=== PATIENT | male | born 1980 | race Caucasian/White ===

== ENCOUNTER 2017-06-28 11:47 | Emergency (ER) | payer SELFPAY ==
[~2017-06-28] VITALS: Ht 172.7 cm; Wt 81.6 kg
[2017-06-28 11:54] VITALS: BP 142/91
[2017-06-28] MEDS ORDERED: NACL 0.9% 1,000 ML IV ONE ×2 (12:35→13:45)
--- NOTE | 2017-06-28 12:40 | NUR ---
Note chanaone in EDM - 06/28/17 at 1244 by PEGGY PATIENT BIB EMS WITH C/O ALOC FROM [facility] D/T SMOKING "HONEY OIL/THC" AROUND 0900 BECAME ALTERED/COMBATIVE, NON VERBAL;if asked questions pt just nod his head; SKIN IS PINK/WARM/DRY;POSITIONED FOR COMFORT; HOB ELEVATED; BEDRAILS UP X2; BED DOWN. ER MD MADE AWARE OF PT STATUS.
--- NOTE | 2017-06-28 12:40 | NUR ---
Pieter mejía in ED - 06/28/[address] [place] [address] kim at bedside evaluating pt.pt respond to Dr Kim's questions;asked pt if he is back to normal or confuse?Pt states "confuse";will continue to monitor pt.
--- NOTE | 2017-06-28 12:40 | NUR ---
PT IN A FOUR POINT RESTRAINT;[facility] PT IS COMBATIVE;
--- NOTE | 2017-06-28 12:41 | NUR ---
DR Kim at bedside evaluating pt.pt respond to Dr Kim's questions;asked pt if he is back to normal or confuse?Pt states "confuse";will continue to monitor pt.
[2017-06-28 12:59] LABS: BASOPHILS # (AUTO) 0.2 K/uL (0.00-0.22); BASOPHILS % (AUTO) 2.6 % (0.0-2.0); EOSINOPHILS # (AUTO) 0.1 K/uL (0-0.4); EOSINOPHILS % (AUTO) 1.6 % (0.0-4.0); HEMATOCRIT 45.2 % (36-52); HEMOGLOBIN 15.1 g/dL (12.0-18.0); LYMPHOCYTES # (AUTO) 1.3 K/uL (2.0-11.5); LYMPHOCYTES % (AUTO) 18.2 % (20.5-51.1); MEAN CORPUSCULAR HEMOGLOBIN 31 pg (27-31); MEAN CORPUSCULAR HGB CONC 33 g/dL (33-37); MEAN CORPUSCULAR VOLUME 92 fL (80-94); MONOCYTES # (AUTO) 0.3 K/uL (0.8-1.0); MONOCYTES % (AUTO) 4.2 % (1.7-9.3); NEUTROPHILS % (AUTO) 73.4 % (42.2-75.2); PLATELET COUNT (AUTO) 218 K/uL (140-450); RED BLOOD CELL COUNT(AUTO) 4.91 MIL/uL (4.20-6.10); RED CELL DISTRIBUTION WIDTH 11.9 % (11.6-13.7); WHITE BLOOD COUNT (AUTO) 6.9 K/uL (4.8-10.8)
--- NOTE | 2017-06-28 12:59 | NUR ---
WENT TO CT SCAN ACCOMPANIED BY TECH.
--- NOTE | 2017-06-28 13:00 | NUR ---
NO COMPROMISE CIRCULATION/SKIN INTACT IN BUE AND BLE;
--- NOTE | 2017-06-28 13:08 | NUR ---
Pieter mejía in EDM - 06/28/17 at 1309 by CESAR Patient discharged with v/s stable. Written and verbal after care instructions given and explained. Patient verbalized understanding. Ambulatory with steady gait. All questions addressed prior to discharge. Advised to follow up with PMD.
[2017-06-28 13:14] LABS: ALBUMIN 3.9 g/dL (3.4-5.0); ANION GAP 12.3 (8-16); ASPARTATE AMINOTRANSFERASE 28 U/L (15-37); CARBON DIOXIDE 29.7 mmol/L (21-32); CHLORIDE 104 mmol/L (98-107); GFR ARICAN-AMERICAN 108 mL/min (>90); GLUCOSE 124 mg/dL (74-106); SODIUM SERUM 142 mmol/L (136-145); TOTAL BILIRUBIN 0.4 mg/dL (0.0-1.0); UREA NITROGEN, BLOOD 14 mg/dL (7-18)
[2017-06-28 13:15] LABS: SALICYLATE < 2.8 mg/dL (2.8-20.0)
[2017-06-28 13:16] LABS: ACETAMINOPHEN < 0.5 ug/ml (10-30)
[2017-06-28 13:16] LABS: APPEARANCE,URINE CLEAR (CLEAR); BILIRUBIN,URINE NEGATIVE (NEGATIVE); BLOOD, URINE NEGATIVE (NEGATIVE); COLOR,URINE YELLOW (YELLOW); LEUKOCYTE ESTERASE ,URINE NEGATIVE (NEGATIVE); NITRITE, URINE NEGATIVE (NEGATIVE); UGLUCOSE NEGATIVE (NEGATIVE)
[2017-06-28 13:21] LABS: BARBITURATE, URINE NEG. ng/ml (NEG <=200); BENZODIAZEPINE, URINE NEG. ng/mL (NEG <=200); CANNABINOID, URINE NEG. ng/mL (NEG <=50); COCAINE, URINE NEG. ng/mL (NEG <=300); OPIATE, URINE NEG. ng/mL (NEG <=2000); PHENCYCLIDINE SCREEN,URINE NEG. ng/mL (NEG <=25)
[2017-06-28 13:25] LABS: RBC,URINE NONE SEEN /HPF (0-5); WBC,URINE 0-5 (RARE) /HPF (0-5)
--- NOTE | 2017-06-28 13:30 | NUR ---
CHECKED CIRCULATION;NO SKIN BREAKDOWN ON RESTRAINT AREA;
--- NOTE | 2017-06-28 13:40 | NUR ---
LATE ENTRY; 1340 END TIME 1L N/S 0.9%; 1000ML TOTAL ADMINISTERED
[2017-06-28 13:44] LABS: CKMB RELATIVE INDEX 1.5 (0.0-2.5); CREATINE KINASE MB 6.7 ng/mL (0-3.6)
--- NOTE | 2017-06-28 14:04 | NUR ---
FOUR POINT RESTRAINT WAS REMOVED;PT IS CALM AND COOPERATIVE;PT STATES "I WILL BE GOOD"NAD;WILL CONTINUE TO MONITOR.
--- NOTE | 2017-06-28 15:04 | NUR ---
NS 1 L WAS CONSUMED AT AROUND 1503.
[2017-06-28 15:42] VITALS: BP 126/74
--- NOTE | 2017-06-28 15:42 | NUR ---
Patient discharged with v/s stable. Written and verbal after care instructions given and explained. Patient verbalized understanding. Ambulatory with steady gait. All questions addressed prior to discharge. Advised to follow up with PMD.
== END 2017-06-28 15:42 | disposition home or self-care (01) ==
LOC: MED 11:47
DX: R41.82 Altered mental status, unspecified (principal); F12.10 Cannabis abuse, uncomplicated; F29 Unspecified psychosis not due to a substance or known physiological condition; R94.31 Abnormal electrocardiogram [ECG] [EKG]
CPT/HCPCS: 36415; 70450; 80053; 80305; 81001; 82550; 82553; 84484; 85025; 93005; 96360; 96361; 99285; G0480; G0482; J7030